=== PATIENT | female | born 1945 | race Caucasian/White ===

== ENCOUNTER 2016-08-03 20:16 | Emergency (ER) | payer MEDICARE, OTHER ==
[2016-08-03 21:17] LABS: ABSOLUTE NEUTROPHIL COUNT 8.6 K/mm3 (1.8-7.7); BASO # 0.1 K/mm3 (0.0-0.2); BASO % 0.5 % (0.2-1.0); EOS % 0.3 % (0.9-2.9); HEMATOCRIT 44.6 % (37.0-47.0); HEMOGLOBIN 14.4 gm/l (12.0-16.0); IMM NEUT # 0.1 K/mm3 (0-0.2); IMM NEUT% 0.8 % (0-1); LYMPH % 8.7 % (15-45); MEAN CELL VOLUME 93.1 fl (81.0-99.0); MEAN CORPUSCULAR HEMOGLOBIN 30.1 pg (27.0-31.0); MEAN CORPUSCULAR HGB CONC 32.3 g/dl (33.0-37.0); MEAN PLATELET VOLUME 10.3 fl (7.4-10.4); MONO % 17.2 % (4-12); NEUT % 72.5 % (43-75); PLATELET COUNT 352 K/mm3 (130-400); RED CELL DISTRIBUTION WIDTH 13.9 % (11.5-14.5)
[2016-08-03] MEDS ORDERED: METHYLPRED SOD SUCCINATE 125 MG VIAL ONE (21:25)
[2016-08-03] MEDS ORDERED: ALBUTEROL/IPRATROPIUM 2.5/0.5 MG 3 ML/EACH DOSE ONE (21:34)
[2016-08-03 21:35] LABS: ALB/GLOB RATIO 0.9 (>1.0); ALBUMIN 3.7 gm/dL (3.5-5.7); CALCIUM 9.1 mg/dL (8.6-10.3)
[2016-08-03 21:38] LABS: TROPONIN I < 0.01 ng/ml (0.0-0.06)
[2016-08-03 21:41] LABS: CKMB ISOENZYME 3.5 ng/ml (0.6-6.3)
[2016-08-03] MEDS ORDERED: SODIUM CHLORIDE 0.65% NASAL SPRAY 45 ML BOT NS ONE (21:45)
[2016-08-03 23:26] LABS: INR 0.93; PROTHROMBIN TIME 9.8 SECONDS (9.3-11.4)
[2016-08-04 03:28] LABS: ARTERIAL BLOOD GAS BASE EXCESS 3.6 mmol/L (-2.0-2.0); ARTERIAL BLOOD GAS PCO2 52.1 mmHg (35.0-45.0); ARTERIAL BLOOD GAS PO2 95.4 mmHg (80.0-90.0); ARTERIAL BLOOD GAS pH 7.378 (7.350-7.450)
--- NOTE | 2016-08-04 07:32 | RAD ---
Exam: Two-view chest COMPARISON: 07/31/2016, 08/13/[address] chest 08/31/2015 INDICATION: Shortness of breath FINDINGS: PA and lateral views of the chest were obtained. Cardiac silhouette is within normal limits. Lungs are hyperinflated, compatible with underlying obstructive airways disease. A left upper lobe lesion, previously described as possibly malignant on multiple exams including the 08/31/2015 CT is again noted and unchanged. There is a stable right basilar scarring. There is no focal airspace disease or pleural effusion. Bones of the chest wall within normal limits. IMPRESSION: Obstructive airways disease and left upper lobe lesion as above, however there is no acute pulmonary process.
== END 2016-08-04 00:19 | disposition home or self-care (01) ==
LOC: ED 20:16
DX: J44.1 Chronic obstructive pulmonary disease with (acute) exacerbation (principal); I10 Essential (primary) hypertension; Z87.891 Personal history of nicotine dependence; I50.9 Heart failure, unspecified; Z79.82 Long term (current) use of aspirin; Z79.2 Long term (current) use of antibiotics; Z79.52 Long term (current) use of systemic steroids; Z79.51 Long term (current) use of inhaled steroids; Z79.899 Other long term (current) drug therapy

== ENCOUNTER 2016-09-09 15:10 | Emergency (ER) | payer MEDICARE, OTHER ==
[2016-09-09 15:44] LABS: ABSOLUTE NEUTROPHIL COUNT 6.8 K/mm3 (1.8-7.7); BASO % 0.2 % (0.2-1.0); EOS % 0.1 % (0.9-2.9); HEMATOCRIT 45.1 % (37.0-47.0); HEMOGLOBIN 14.3 gm/l (12.0-16.0); IMM NEUT # 0.1 K/mm3 (0-0.2); IMM NEUT% 0.9 % (0-1); LYMPH # 1.3 (1.0-4.8); LYMPH % 14.5 % (15-45); MEAN CELL VOLUME 93.8 fl (81.0-99.0); MEAN CORPUSCULAR HEMOGLOBIN 29.7 pg (27.0-31.0); MEAN CORPUSCULAR HGB CONC 31.7 g/dl (33.0-37.0); MEAN PLATELET VOLUME 9.3 fl (7.4-10.4); MONO # 0.7 (0.0-0.8); MONO % 7.9 % (4-12); NEUT % 76.4 % (43-75); PLATELET COUNT 401 K/mm3 (130-400); RED CELL DISTRIBUTION WIDTH 14.4 % (11.5-14.5)
[2016-09-09 16:03] LABS: ALB/GLOB RATIO 1.2 (>1.0); CALCIUM 10.1 mg/dL (8.6-10.3)
[2016-09-09] MEDS ORDERED: ALBUTEROL/IPRATROPIUM 2.5/0.5 MG 3 ML/EACH DOSE ONE (16:04)
[2016-09-09] MEDS ORDERED: LORAZEPAM 2 MG/ML 1ML SDV ONE (16:04)
[2016-09-09 16:05] LABS: TROPONIN I < 0.01 ng/ml (0.0-0.06)
[2016-09-09 16:09] LABS: CKMB ISOENZYME 3.3 ng/ml (0.6-6.3)
--- NOTE | 2016-09-09 17:23 | RAD ---
Exam: Two-view chest COMPARISON: 08/03/2016, 06/17/[address] chest 09/12/2015 INDICATION: Breathing problems, history of COPD and CHF. FINDINGS: PA and lateral views of the chest were obtained. Cardiac silhouette is within normal limits and stable. Lungs are hyperinflated, compatible with underlying obstructive airways disease. The previously described left upper lobe lesion is again appreciated. There is minor right basilar scarring. There is no focal airspace disease or pleural effusion. Bones of the chest wall within normal limits. IMPRESSION: No acute pulmonary process. Obstructive airways disease and left upper lobe lesion are again appreciated.
== END 2016-09-09 18:13 | disposition home or self-care (01) ==
LOC: ED 15:10
DX: J44.1 Chronic obstructive pulmonary disease with (acute) exacerbation (principal); I10 Essential (primary) hypertension; F17.210 Nicotine dependence, cigarettes, uncomplicated; Z85.118 Personal history of other malignant neoplasm of bronchus and lung
CPT/HCPCS: 83880; 85025; 82550; 82553; 80053; 84484; 71020; 94640; 99284 ×2; 96374; 93005; J2060